=== PATIENT | male | born 1965 | race Caucasian/White ===

== ENCOUNTER 2018-08-31 10:51 | Outpatient (REF) | payer BC, SELFPAY ==
[2018-08-31 22:41] LABS: ALT 37 U/L (12-78); AST 48 U/L (15-37); Albumin 3.9 g/dL (3.4-5.0); Alkaline Phosphatase 76 U/L (46-116); Anion Gap 7.4 mmol/L (3-11); BUN 21 mg/dL (7-18); Bilirubin, Total 0.4 mg/dL (0.2-1.0); CO2 27.6 mmol/L (21.0-32.0); CREATININE 1.16 mg/dL (0.70-1.30); Calcium 9.6 mg/dL (8.5-10.1); Chloride 98 mmol/L (98-107); Glucose 91 mg/dL (70-100); Potassium 4.5 mmol/L (3.5-5.1); Sodium 133 mmol/L (136-145); TSH (W/Ref FT4) 1.02 uIU/mL (0.358-3.74); Total Protein 7.6 g/dL (6.4-8.2)
[2018-09-02 15:58] LABS: PSA, Screening 0.7 ng/ml (0-3.5)
== END 2018-08-31 11:11 ==
LOC: NCHCN 10:51
PROVIDERS: PCP Family Medicine; Visit Provider Family Medicine
DX: I10 Essential (primary) hypertension (principal); E03.9 Hypothyroidism, unspecified; E23.0 Hypopituitarism; Z12.5 Encounter for screening for malignant neoplasm of prostate
CPT/HCPCS: 80053; 84153; 84443

== ENCOUNTER 2019-01-21 11:50 | Outpatient (REF) | payer BC, SELFPAY ==
[2019-01-27 18:40] LABS: Testosterone, Free 8.12 ng/dL (3.87-14.7); Testosterone, Total 280 ng/dL (240-950)
== END 2019-01-21 12:10 ==
LOC: NCHCN 11:50
PROVIDERS: PCP Family Medicine; Visit Provider Family Medicine
DX: E89.3 Postprocedural hypopituitarism (principal)
CPT/HCPCS: 84402; 84403

== ENCOUNTER 2019-06-16 00:24 | Outpatient (REF) | payer MEDICAID, SELFPAY ==
[2019-06-15 22:27] LABS: HGB 13.2 g/dL (13.5-17.5); Mean Corp. HGB Concentration 32.2 g/dL (32.0-36.0); Mean Corpuscular Hemoglobin 28.6 pg (27.0-33.0); Mean Corpuscular Volume 88.7 fL (80-95); Mean Platelet Volume 10.9 fL (8.0-11.0); Platelet Count 476 x1000/uL (130-400); RBC 4.62 m/cumm (4.50-6.00); RBC Distribution Width 16.6 % (11.8-14.1); White Blood Cell Count 7.44 k/cumm (4.4-10.8)
[2019-06-15 22:58] LABS: ALT 38 U/L (16-63); AST 39 U/L (15-37); Albumin 3.7 g/dL (3.4-5.0); Alkaline Phosphatase 125 U/L (46-116); Anion Gap 6.2 mmol/L (3-11); BUN 15 mg/dL (7-18); Bilirubin, Total 0.4 mg/dL (0.2-1.0); CO2 29.8 mmol/L (21.0-32.0); Calcium 8.5 mg/dL (8.5-10.1); Chloride 100 mmol/L (98-107); Glucose 77 mg/dL (74-106); Potassium 4.9 mmol/L (3.5-5.1); Sodium 136 mmol/L (136-145); TSH 1.13 uIU/mL (0.36-3.74); Total Protein 7.8 g/dL (6.4-8.2)
[2019-06-19 16:37] LABS: Testosterone, Free 2.74 ng/dL (3.87-14.7); Testosterone, Total 114 ng/dL (240-950)
== END 2019-06-16 00:44 ==
LOC: NCHCN 00:24
PROVIDERS: PCP Family Medicine; Visit Provider Registered Nurse
DX: I10 Essential (primary) hypertension (principal); I35.0 Nonrheumatic aortic (valve) stenosis; I25.10 Atherosclerotic heart disease of native coronary artery without angina pectoris; E23.0 Hypopituitarism
CPT/HCPCS: 80053; 84402; 84403; 85027; 84443

== ENCOUNTER 2020-06-27 22:44 | Outpatient (REF) | payer MEDICAID, SELFPAY ==
[2020-06-27 22:45] LABS: TSH 0.09 uIU/mL (0.36-3.74)
[2020-06-30 16:43] LABS: Testosterone, Free 4.83 ng/dL (3.87-14.7); Testosterone, Total 142 ng/dL (240-950)
== END 2020-06-27 22:45 | disposition home or self-care (01) ==
LOC: NCHCN 22:44
PROVIDERS: PCP Family Medicine; Visit Provider Family Medicine
DX: E03.9 Hypothyroidism, unspecified (principal); E89.3 Postprocedural hypopituitarism; E23.0 Hypopituitarism
CPT/HCPCS: 84402; 84403; 84443

== ENCOUNTER 2020-08-29 16:40 | Outpatient (REF) | payer MEDICAID, SELFPAY ==
[2020-08-29 22:09] LABS: TSH 0.37 uIU/mL (0.36-3.74)
== END 2020-08-29 16:41 | disposition home or self-care (01) ==
LOC: NCHCN 16:40
PROVIDERS: PCP Family Medicine; Visit Provider Family Medicine
DX: E03.9 Hypothyroidism, unspecified (principal)
CPT/HCPCS: 84443

== ENCOUNTER 2021-04-08 12:32 | Outpatient (REF) | payer MEDICARE, MEDICAID, SELFPAY ==
[2021-04-08 15:41] LABS: Absolute Basophil Count 0.06 10^3/uL (0.0-0.2); Absolute Eosinophil Count 0.24 10^3/uL (0.0-0.7); Absolute Lymphocyte Count 1.65 10^3/uL (1.2-3.4); Absolute Monocyte Count 0.72 10^3/uL (0.1-0.8); Absolute Neutrophil Count 7.93 10^3/uL (1.2-6.7); Basophils % 0.6; Eosinophils % 2.2; HCT 42.1 % (40.0-50.0); HGB 13.6 g/dL (13.5-17.5); Immature Grans % 0.9; Lymphocytes % 15.4; MCH 30.4 pg (27.0-33.0); MCHC 32.3 % (32.0-36.0); MCV 94.2 fL (80-95); Monocytes % 6.7; Neutrophils % 74.2; Nucleated RBC 0 %; Platelet Count 562 10^3/uL (130-400); RBC 4.47 10^6/uL (4.36-5.78); RDW 15.3 % (11.8-14.1); RDW-SD 53.3 fL
== END 2021-04-08 12:33 | disposition home or self-care (01) ==
LOC: NCHCN 12:32
PROVIDERS: PCP Family Medicine; Visit Provider Family Medicine
DX: E16.2 Hypoglycemia, unspecified (principal); D47.3 Essential (hemorrhagic) thrombocythemia; I70.1 Atherosclerosis of renal artery; M54.18 Radiculopathy, sacral and sacrococcygeal region
CPT/HCPCS: 85025

== ENCOUNTER 2021-05-17 11:15 | Outpatient (REF) | payer MEDICARE, MEDICAID, SELFPAY ==
--- NOTE | 2021-05-17 09:00 | SKI_PTH ---
PATIENT: Anthony Broderick LOC: [facility] U#:[id number] AGE/SX: 55/M ROOM: RE05/17/[address]: Fracisco Myers : 1965 BED: DIS: 05/17/2021 SPEC #: [id number] RECD: 05/17/21 16:49 STATUS: XAVIER REQ #: [id number] LEXI: 05/17/21 09:[address]: Fracisco Myers DEPT: Surgical Specimen RECD BY: Ana Ly ENTERED: 05/17/21 16:50 SP TYPE: SKI OTHR DR: Shabana Hutchinson Tissues: 1 - SKIN BIOPSY(SHAVE/PUNCH) Procedures: IMMUNOPEROXIDASE STAIN SKIN LEVEL 4 Comments: [id number]
== END 2021-05-17 11:16 | disposition home or self-care (01) ==
LOC: LBN 11:15
PROVIDERS: PCP Family Medicine; Visit Provider Family Medicine
DX: D22.61 Melanocytic nevi of right upper limb, including shoulder (principal)
CPT/HCPCS: 88305; 88361

== ENCOUNTER 2023-06-17 16:18 | Outpatient (CLI) | payer MEDICARE, OTHER, MEDICAID, SELFPAY ==
--- NOTE | 2023-06-17 06:00 | DI.RAD_ITS ---
Exam(s) XR PAIN CLINIC LUMBAR SP 2V EXAM: XR PAIN CLINIC LUMBAR SP 2V CLINICAL HISTORY: DX: Lumbar spondylosis TECHNIQUE: 2D and realtime digital imaging was performed. Radiologist not present. CONTRAST MATERIAL: None. COMPARISON: No exams were available for comparison FINDINGS: Fluoroscopy was provided for pain management therapy. Please refer to procedure report or details. Radiation Exposure Index: Ka,r=31.7 mGy IMPRESSION: As above. RADIATION DOSE DELIVERED:
[2023-06-17 16:27] VITALS: BP 143/88; PULSE 86; RESP 20; TEMP 36.6; O2SAT 98
--- NOTE | 2023-06-17 17:18 | PDOC.PAIN ---
Date of service: 06/17/23 Time of Service: 17:18 Pain Managment Procedure Note Procedure Note Procedure Note: PROCEDURE NOTE Bilateral Lumbar Medial Branch Blocks Date of Service: June 17, 2023 Patient: Anthony Broderick Provider: Michael Diallo DO, MPH Anthony Broderick has been [facility] for lumbar medial branch blocks. Pre-operative diagnosis: Lumbar Spondylosis without Myelopathy Post-operative diagnosis: Same Pre-procedure pain: VAS= 7/10 COMMENTS: I previously evaluated him in the clinic and his symptoms are unchanged. Ramy was interviewed and the medical records were reviewed. There were no medical, pharmacologic, radiographic or other structural contraindications to attempting fluoroscopically guided local anesthetic lumbar medial branch blocks. Risks and potential side effects were discussed. I also discussed the potential benefit(s) of the procedure with Anthony, and voiced concerns were addressed. After Anthony was completely informed about the procedure, the printed consent form was signed. A standard time-out procedure was performed. Anthony was placed in the prone position on the fluoroscopy table. Automated blood pressure cuff and pulse oximeter were applied. The skin entry points for approaching the anatomic target points of the segmental medial branches of bilateral L3,L4,L5 were identified with fluoroscopy and marked. The skin at the target site area was thoroughly prepared with Chlorhexadine. The skin was then draped. Next, a 25 gauge 3.5 spinal needle was placed under fluoroscopic guidance down on to the target point (the articular pillar) for each respective segmental medial branch. Position was confirmed in A/P and lateral views. Aspiration revealed no blood or clear fluid. Next, 0.25ml of omnipaque 240 was injected at each level. No contrast following a vascular or neural pattern was visualized under continuous fluoroscopy. Next, 0.25 ml of preservative-free 0.5% bupivicaine was injected at each level. There was no unusual discomfort expressed by Anthony. The needles were withdrawn without difficulty. (49 mls of Omnipaque was wasted) Anthony was observed and was without hemodynamic, neurologic, or allergic reactions.? Fluoroscopic images were digitally archived. Provacative testing using the Modified Vale's facet loading test- Left side Right Side Directly before the block VAS (0-10) = 6/10 VAS (0-10) = 6/10 Five minutes after the block VAS (0-10) = 1/10 VAS (0-10) = 1/10 Percentage relief obtained with this diagnostic block 90% 90% Any improved physical functioning directly after the blocks? Able to move his back much easier. Follow up plans and appointments were discussed with Anthony. Anthony was instructed to keep careful note of how the usual pain was modified by these injections. Specifically, to keep a pain diary for the next 4 hours using a numeric pain scale of 0-10 and report these results. Post procedure instruction was given as documented in the nursing documentation and having met discharge criteria, the [facility] was [facility] Based on the medial branches blocked today, if they patient has adequate relief and we are able to proceed to radiofrequency ablation, the treatment should result in the denervation of the bilateral L4-L5 and L5-S1 facet joints. We would expect to denervate a total of 4 facets during the radiofrequency ablation. COMMENTS: No apparent complications. Post-procedure pain: VAS= 1/10 Anthony will call back with 0-4 hour post-procedure pain scores. I personally performed the entire procedure. MICHAEL DIALLO DO, MPH ABPM&R-subspecialty board certification in Pain Medicine [facility] [facility]
[2023-06-17] MEDS: Nerve Block Tray 1 EACH MC (17:25)
[2023-06-17] MEDS: Bupivacaine 0.5% Pres-Free 10 ML VIAL IJ (17:25)
[2023-06-17] MEDS: Omnipaque 240 MG/ML 50 ML BTL IJ (17:26)
[2023-06-17 17:28] VITALS: BP 118/55; PULSE 110; RESP 20; O2SAT 98
== END 2023-06-17 16:19 | disposition home or self-care (01) ==
LOC: PC 16:19
PROVIDERS: PCP Family Medicine; Visit Provider Preventive Medicine Occupational Medicine
DX: M54.50 Low back pain, unspecified (principal); M47.816 Spondylosis without myelopathy or radiculopathy, lumbar region
CPT/HCPCS: 00123; 64493; 64494; 72100; J0665; Q9967